=== PATIENT | female | born 1965 | race Two or more races ===

== ENCOUNTER → 2024-08-31 14:07 | Outpatient (CLI) | payer OTHER | END | disposition home or self-care (01) | LOC: NUCLEAR 13:30 | PROVIDERS: ATTEND Orthopaedic Surgery | DX: M81.0 Age-related osteoporosis without current pathological fracture (principal) ==

== ENCOUNTER 2024-08-31 14:51 | Outpatient (CLI) | payer OTHER | END 2024-08-31 14:54 | disposition home or self-care (01) | LOC: RAD 14:51 | PROVIDERS: ATTEND Orthopaedic Surgery | DX: M25.551 Pain in right hip (principal); M25.561 Pain in right knee; M54.2 Cervicalgia ==

== ENCOUNTER 2024-10-20 10:22 | Emergency (ER) | payer OTHER ==
[~2024-10-20] VITALS: Ht 162.6 cm; Wt 65.8 kg
[2024-10-20] MEDS ORDERED: PROGESTERONE100 M1 (10:36)
[2024-10-20] MEDS ORDERED: LUNESTA3 MG PO (10:37)
[2024-10-20] MEDS ORDERED: ESTAZOLAM1 MG (10:37)
[2024-10-20] MEDS ORDERED: OSTERA TABLET1 EACH PO (10:38)
[2024-10-20] MEDS ORDERED: IBU800 MG (10:38)
[2024-10-20] MEDS ORDERED: ONDANSETRON HCL 2 MG/ML VIAL IV STA (10:48)
[2024-10-20] MEDS ORDERED: MORPHINE SULFATE 4 MG/ML VIAL IV ONE (11:00)
[2024-10-20 11:20] LABS: BASO % 0.3 % (0.1-1.2); EOS # 0.05 (0.04-0.54); EOS % 0.6 % (0.7-7.0); LYMPH # 1.23 (1.18-3.74); LYMPH % 14.1 % (19.3-53.1); MEAN PLATELET VOLUME 8.40 fl (9.4-12.4); MONO # 0.44 (0.24-0.82); MONO % 5.0 % (4.7-12.5); NEUT # 6.96 (1.56-6.13); NEUT % 79.7 % (34.0-71.1); RED CELL DISTRIBUTION WIDTH 14.5 % (11.6-14.4)
[2024-10-20 12:04] LABS: ALT/SGPT 18.0 U/L (12-78); AST/SGOT 12.0 U/L (15-37); BILIRUBIN TOTAL 0.43 mg/dL (0.3-1.2); BUN CREA RATIO 19.0 (7.0-25.0); CREATININE SERUM 0.7 mg/dL (0.55-1.02); GFR 86.25; GLOBULINA 3.7 G/DL (2.4-3.5); GLUCOSE FASTING 113.0 mg/dL (65-100); OSMOLALITY SERUM 286.0 MOSM/KG (275-295)
[2024-10-20 13:30] LABS: URINE APPEARANCE Cloudy; URINE BILIRRUBIN Negative (NEGATIVE); URINE BLOOD Trace; URINE COLOR Yellow; URINE GLUCOSE Negative (NEGATIVE); URINE KETONE Negative (NEGATIVE); URINE LEUKOCYTE Negative; URINE NITRATE Negative; URINE PROTEIN Negative (NEGATIVE); URINE UROBILINOGEN 1.0 E.U./dl
[2024-10-20 13:31] LABS: URINE BACTERIA 6825.2 uL (0.0-1933); URINE CAST 2.93 uL (0.0-1.40); URINE EPITHELIAL CELLS 34.2 uL (0.0-38.8); URINE RBC 31.6 uL (0.0-20.8); URINE WBC 47.0 uL (0.0-23.2)
== END 2024-10-20 13:50 | disposition home or self-care (01) ==
LOC: ER 12:51
PROVIDERS: Emergency Medicine
DX: R51.9 Headache, unspecified (principal); R11.10 Vomiting, unspecified

== ENCOUNTER 2025-04-18 10:08 | Outpatient (CLI) | payer OTHER ==
[~2025-04-18 10:08] MED LIST: ESTAZOLAM1 MG; IBU800 MG; LUNESTA3 MG PO; OSTERA TABLET1 EACH PO; PROGESTERONE100 M1
== END 2025-04-18 10:25 | disposition home or self-care (01) ==
LOC: MAMO-SONO 10:08
PROVIDERS: ATTEND General Practice
DX: N60.11 Diffuse cystic mastopathy of right breast (principal); N60.12 Diffuse cystic mastopathy of left breast; N64.0 Fissure and fistula of nipple; N63.0 Unspecified lump in unspecified breast; Z12.31 Encounter for screening mammogram for malignant neoplasm of breast